=== PATIENT | male | born 1950 | race Caucasian/White ===

== ENCOUNTER 2023-06-06 14:55 | Outpatient (CLI) | payer BC, SELFPAY ==
[2023-06-06 18:06] LABS: Alanine Aminotransferase 31 U/L (6-50); Albumin Level 4.8 g/dL (3.5-5.1); Alkaline Phosphatase 76 U/L (38-126); Anion Gap 7 mmol/L (8-16); Aspartate Amino Transferase 58 U/L (17-59); Bilirubin,Total 0.8 mg/dL (0.2-1.3); Blood Urea Nitrogen 26 mg/dL (9-20); Calcium 9.5 mg/dL (8.4-10.2); Carbon Dioxide 25 mmol/L (22-30); Chloride 106 mmol/L (98-107); Estimated Glomerular Filt Rate > 60; Glucose 98 mg/dL (65-110); Potassium 4.2 mmol/L (3.4-5.0); Sodium 138 mmol/L (137-145)
[2023-06-06 18:09] LABS: Free T4 Free Thyroxine 0.22 ng/mL (0.78-2.19)
[2023-06-06 18:26] LABS: Total Triiodothyronine (T3) 0.69 NG/ML (0.97-1.69)
[2023-06-09 03:00] LABS: Thyroid Peroxidase Antibodies 374 IU/mL (<9)
[2023-06-09 22:07] LABS: Thyrotropin Receptor Antibody 2.71 IU/L (<=2.00)
[2023-06-12 14:06] LABS: Thyroid Stimulating Immunoglob 349 % baseline (<140)
== END 2023-06-06 14:56 | disposition home or self-care (01) ==
LOC: ANHWCLAB 14:57
PROVIDERS: PCP Internal Medicine; Visit Provider Internal Medicine
DX: E05.90 Thyrotoxicosis, unspecified without thyrotoxic crisis or storm (principal)
CPT/HCPCS: 36415; 80053; 83519; 84439; 84443; 84445; 84480; 86376